=== PATIENT | female | born 1980 | race Caucasian/White ===

== ENCOUNTER 2017-07-31 23:43 | Emergency (ER) | payer SELFPAY ==
--- NOTE | 2017-07-31 23:57 | C.PDOC ---
History Of Present Illness Patient presents to ED with complaints of abdominal pain in the left upper quadrant that radiates to the left flank that began 3 hours ago. Associated symptoms are nausea and 6 episodes of vomiting. Patient states she last ate at 2PM. Denies fever, chills or dysuria. Time Seen by Provider: 07/31/17 23:57 Chief Complaint (Nursing): Abdominal Pain History Per: Patient History/Exam Limitations: no limitations Onset/Duration Of Symptoms: Hrs (3) Current Symptoms Are (Timing): Still Present Severity: Moderate Pain Scale Rating Of: 6 Location Of Pain/Discomfort: LUQ Radiation Of Pain To:: Flank (Left) Quality Of Discomfort: "Pain" Associated Symptoms: Nausea, Vomiting (6 episodes). denies: Fever, Chills, Urinary Symptoms Exacerbating Factors: None Alleviating Factors: None Recent travel outside of the [place]: No Past Medical History Reviewed: Historical Data, Nursing Documentation, Vital Signs Vital Signs: Last Vital Signs Temp 98.6 F 07/31/17 23:47 Pulse 90 07/31/17 23:47 Resp 14 07/31/17 23:47 BP 111/71 07/31/17 23:47 Pulse Ox 99 08/01/17 00:37 - Medical History PMH: Kidney Stones Family History: States: No Known Family Hx - Social History Hx Alcohol Use: Yes Hx Substance Use: No - Immunization History Hx Tetanus Toxoid Vaccination: No Hx Influenza Vaccination: No Hx Pneumococcal Vaccination: No Review Of Systems Constitutional: Negative for: Fever, Chills Gastrointestinal: Positive for: Nausea, Vomiting (6 episodes), Abdominal Pain ( Radiates to the left flank) Genitourinary: Negative for: Dysuria Neurological: Negative for: Weakness, Numbness Psych: Negative for: Depression, Suicidal ideation Physical Exam - Physical Exam Appears: Non-toxic, Other (Awake and alert) Skin: Warm, Dry Head: Normacephalic Eye(s): bilateral: Normal Inspection Oral Mucosa: Moist Chest: Symmetrical, No Tenderness Cardiovascular: Rhythm Regular Respiratory: No Rales, No Rhonchi, No Wheezing Gastrointestinal/Abdominal: Soft, Tenderness (Left upper quadrant and left flank ), No Guarding, No Rebound Neurological/Psych: Oriented x3, Normal Speech, Normal Cognition ED Course And Treatment - Laboratory Results Result Diagrams: 08/01/17 00:11 08/01/17 00:11 O2 Sat by Pulse Oximetry: 99 (Room air) Pulse Ox Interpretation: Normal Progress Note: Administered Morphine, Pepcid, Zofran and IV fluids. Ordered blood work and Urinalysis. Reevaluation Time: 02:00 Reassessment Condition: Improved Disposition Counseled Patient/Family Regarding: Studies Performed, Diagnosis, Need For Followup, Rx Given - Disposition Referrals: [facility] [Outside] Formerly [facility], [facility] [Outside] Disposition: HOME/ ROUTINE Disposition Time: 23:57 Condition: FAIR Additional Instructions: Please return if symptoms recur Prescriptions: Famotidine [Pepcid] 20 mg PO DAILY #15 tab Ondansetron ODT [Zofran ODT] 1 odt PO BID PRN #6 odt PRN Reason: Nausea/Vomiting Instructions: Enteritis (ED), Abdominal Pain (ED), Gas and Bloating (ED) Forms: [employer] (Kinyarwanda) Print Language: TAMAZIGHT - Clinical Impression Clinical Impression: Abdominal pain, Nausea, Enteritis - Scribe Statement The provider has reviewed the documentation as recorded by the Ani Rosales All medical record entries made by the Mary Louibhe were at my direction and personally dictated by me. I have reviewed the chart and agree that the record accurately reflects my personal performance of the history, physical exam, medical decision making, and the department course for this patient. I have also personally directed, reviewed, and agree with the discharge instructions and disposition.
[2017-07-31 23:59] VITALS: RESP 14; TEMP 98.6
[2017-08-01] MEDS ORDERED: Sodium Chloride 0.9% 1,000 ML IV ONE (00:03)
[2017-08-01] MEDS ORDERED: Sodium Chloride 0.9% 1,000 ML ONE (00:14)
[2017-08-01 00:16] LABS: BASO # 0.1 K/uL (0.0-0.2); BASO % 0.5 % (0.0-2.0); EOS # 0.1 K/uL (0.0-0.7); EOS % 1.2 % (0.0-4.0); HEMOGLOBIN 14.9 g/dL (11.0-16.0); LYMPH # 0.9 K/uL (1.0-4.3); MEAN CELL VOLUME 85.8 fL (81.0-99.0); MEAN CORPUSCULAR HEMOGLOBIN 29.2 pg (27.0-31.0); MEAN CORPUSCULAR HGB CONC 34.1 g/dL (33.0-37.0); MEAN PLATELET VOLUME 10.1 fL (7.2-11.7); MONO # 0.3 K/uL (0.0-0.8); MONO % 2.8 % (0.0-10.0); NEUT % 87.5 % (50.0-75.0); NRBC % 0.1 % (0.0-2.0); PLATELET COUNT 171 K/uL (130-400); RBC 5.12 Mil/uL (3.80-5.20); RED CELL DISTRIBUTION WIDTH 14.3 % (11.5-14.5); WHITE BLOOD COUNT 11.5 K/uL (4.8-10.8)
[2017-08-01 00:19] LABS: HCG,QUALITATIVE URINE NEGATIVE (NEGATIVE); SQUAMOUS EPITHIAL 12 /hpf (0-5); URINE BILIRUBIN NEGATIVE (NEGATIVE); URINE BLOOD NEGATIVE (NEGATIVE); URINE CLARITY Hazy (Clear); URINE COLOR Yellow (YELLOW); URINE GLUCOSE (UA) NORMAL (Normal); URINE LEUKOCYTE ESTERASE NEG Leu/uL (Negative); URINE NITRATE NEGATIVE (NEGATIVE); URINE PROTEIN NEGATIVE (NEGATIVE); URINE UROBILINOGEN NORMAL mg/dL (0.2-1.0)
[2017-08-01 00:22] LABS: INR 0.9; PROTHROMBIN TIME 10.5 SECONDS (9.7-12.2)
[2017-08-01 00:36] LABS: ALB/GLOB RATIO 1.3 (1.0-2.1); ALBUMIN 4.4 g/dL (3.5-5.0); ALT/SGPT 32 U/L (9-52); AST/SGOT 26 U/L (14-36); BLOOD UREA NITROGEN 9 mg/dL (7-17); CALCIUM 7.7 mg/dl (8.6-10.4); GFR AFRICAN-AMERICAN > 60; GFR NON-AFRICAN AMERICAN > 60; LIPASE 51 U/L (23-300)
[2017-08-01 00:46] LABS: EOSINOPHIL 1 % (0-4); LYMPHOCYTE 6 % (20-40); MONOCYTE 0 % (0-10); NEUTROPHIL 88 % (50-75); PLATELET ESTIMATE NORMAL (NORMAL); REACTIVE LYMPHOCYTES 5 % (0-0); TOTAL CELLS COUNTED 100
[2017-08-01] MEDS ORDERED: Iodixanol 320 mg/ml 150 ml Bottle IV ONE (01:01)
--- NOTE | 2017-08-01 01:38 | CT ---
EXAM: CT Abdomen and Pelvis With Intravenous Contrast CLINICAL HISTORY: 36 years old, female; Pain; Abdominal pain; Localized; Left lower quadrant (llq); Additional info: Llq pain TECHNIQUE: Axial computed tomography images of the abdomen and pelvis with intravenous contrast. All CT scans at this facility use one or more dose reduction techniques, viz.: automated exposure control; ma/kV adjustment per patient size (including targeted exams where dose is matched to indication; i.e. head); or iterative reconstruction technique. Coronal and sagittal reformatted images were created and reviewed. CONTRAST: 100 mL of [id number] administered intravenously. COMPARISON: No relevant prior studies available. FINDINGS: Lower thorax: Minimal atelectasis. ABDOMEN: Liver: Mild fatty infiltration. Gallbladder and bile ducts: Gallstones. No significant ductal dilation. Pancreas: No ductal dilation. No mass. Spleen: No splenomegaly. Adrenals: No mass. Kidneys and ureters: Too small to characterize lesion within LEFT kidney. No hydronephrosis. Stomach and bowel: Fluid within small bowel. Fluid/loose stool within large bowel. Apparent mild mural/fold thickening vs underdistention of several jejunal loops. No associated inflammatory stranding. No obstruction. Appendix: Normal caliber. No inflammation. PELVIS: Bladder: Unremarkable. Reproductive: IUD within lower uterine segment. Small ovarian follicles. ABDOMEN and PELVIS: Intraperitoneal space: No significant fluid collection. No free air. Bones/joints: No acute fracture. Soft tissues: Tiny umbilical hernia containing fat. Vasculature: Unremarkable. No aneurysm. Lymph nodes: No pathologically enlarged lymph nodes. IMPRESSION: 1. Probable mild enteritis. Clinical correlation is needed. 2. Low lying IUD. 3. Incidental/non-acute findings are described above.
[2017-08-01 02:19] VITALS: BP 110/70; PULSE 80; O2SAT 97
== END 2017-08-01 02:19 | disposition home or self-care (01) ==
LOC: C.ER 23:43
DX: K52.9 Noninfective gastroenteritis and colitis, unspecified (principal); R10.12 Left upper quadrant pain; R11.0 Nausea
CPT/HCPCS: 74177; 80053; 81001; 83690; 84703; 85025; 85610; 85730; 96374; 96375; 99284; J1885; J2270; J2405; J7040; Q9967